=== PATIENT | female | born 1980 | race Caucasian/White ===

== ENCOUNTER 2016-10-06 13:43 | Emergency (ER) | payer OTHER ==
[~2016-10-06] VITALS: Ht 167.6 cm; Wt 76.2 kg
--- NOTE | 2016-10-06 13:51 | NUR ---
PT IS IN ROOM #2B. DR CERDA EVALUATED THE PT.
--- NOTE | 2016-10-06 14:41 | NUR ---
PT WAS D/C TO HOME. D/C INSTRUCTIONS GIVEN TO THE PT.
[2016-10-06] MEDS ORDERED: IBUPROFEN 600 MG TABLET PO ONE (14:45)
[2016-10-06 14:48] VITALS: BP 129/76
[2016-10-06] MEDS ORDERED: IBUPROFEN 600 MG TABLET ONE (14:51)
== END 2016-10-06 14:49 | disposition home or self-care (01) ==
LOC: ER 13:43
DX: S93.402A Sprain of unspecified ligament of left ankle, initial encounter (principal); W22.8XXA Striking against or struck by other objects, initial encounter; Y93.01 Activity, walking, marching and hiking; Y92.89 Other specified places as the place of occurrence of the external cause; Y99.8 Other external cause status
CPT/HCPCS: 29515; 73610; 99284; A4663